=== PATIENT | male | born 2000 | race Caucasian/White ===

== ENCOUNTER 2024-07-04 19:43 | Emergency (ER) | payer OTHER ==
[~2024-07-04] VITALS: Ht 175.3 cm; Wt 82.8 kg
[2024-07-04 21:05] LABS: BASO # 0.1 10^3/uL (0.0-0.2); BASO % 0.7 % (0.0-1.0); EOS # 0.2 10^3/uL (0.0-0.5); EOS % 2.4 % (0.0-3.0); HEMATOCRIT 44.5 % (42.0-52.0); HEMOGLOBIN 15.4 g/dl (13.5-17.5); LYMPH # 2.7 10^3/uL (1.5-5.0); MEAN CORPUSCULAR HEMOGLOBIN 30.6 pg (27.0-33.0); MEAN CORPUSCULAR HGB CONC 34.6 g/dl (32.0-36.5); MEAN CORPUSCULAR VOLUME 88.3 fl (80.0-96.0); MONO % 10.6 % (2.0-8.0); NEUTROPHILS # 5.5 10^3/uL (1.5-8.5); NEUTROPHILS % 57.9 % (36.0-66.0); PLATELET COUNT, AUTOMATED 266 10^3/uL (150-450); RED BLOOD COUNT 5.04 10^6/uL (4.30-6.10); WHITE BLOOD COUNT 9.6 10^3/uL (4.0-10.0)
[2024-07-04 21:25] LABS: CK-MB VALUE MASS 2.7 NG/ML (<3.6)
[2024-07-04 21:26] LABS: LIPASE 37 U/L (12-53)
[2024-07-04 21:27] LABS: CPK CREATINE PHOSPHOKINASE 257 U/L (46-171); MB/CK RELATIVE INDEX 1.05 (< OR =4)
[2024-07-04 21:28] LABS: ALBUMIN 4.1 G/DL (3.2-5.2); ALKALINE PHOSPHATASE 65 U/L (46-116); ALT/SGPT 28 U/L (7.0-40); AST/SGOT 20 U/L (<34); BILIRUBIN,DIRECT 0.1 MG/DL (<0.4); BILIRUBIN,TOTAL 0.4 MG/DL (0.3-1.2); BLOOD UREA NITROGEN 14 MG/DL (9-23); CARBON DIOXIDE LEVEL 30 MMOL/L (20-31); CHLORIDE LEVEL 106 MMOL/L (98-107); GLOMERULAR FILTRATION RATE > 60.0 (>60); GLUCOSE, FASTING 89 MG/DL (60-100); POTASSIUM SERUM 4.1 MMOL/L (3.5-5.1); SODIUM LEVEL 140 MMOL/L (136-145)
[2024-07-04] MEDS ORDERED: NAPR-837 PO (23:25)
[2024-07-04 23:28] VITALS: BP 140/98; TEMP 98.4; O2SAT 98
[2024-07-04] MEDS: NAPROXEN 250 MG TAB PO ONE (23:29)
== END 2024-07-04 23:32 | disposition home or self-care (01) ==
LOC: M ED 19:43
DX: M94.0 Chondrocostal junction syndrome [Tietze] (principal); R07.89 Other chest pain; I45.10 Unspecified right bundle-branch block; Z79.899 Other long term (current) drug therapy